=== PATIENT | male | born 1970 | race Caucasian/White ===

== ENCOUNTER 2023-06-14 15:16 | Outpatient (CLI) | payer BC, SELFPAY ==
--- NOTE | 2023-06-14 14:21 | DI.RAD_ITS ---
Exam(s) XR SHOULDER RT COMPLETE 2+V EXAM: XR SHOULDER RT COMPLETE 2+V CLINICAL HISTORY: RIGHT SHOULDER PAIN. TECHNIQUE: 2D digital imaging was performed of the right shoulder. Two images were obtained. Axill jaron and Grashey views were obtained. COMPARISON: CR RIGHT SHOULDER COMPLETE from 07/01/2008 FINDINGS: BONES: No acute fracture is present. No bony destructive lesion is seen. JOINTS: No dislocation present. The glenohumeral joint is well maintained. Mild degenerative changes are seen at the acromioclavicular joint. SOFT TISSUE: The visualized lung vieyra are clear. IMPRESSION: Mild degenerative changes seen at the acromioclavicular joint. DATA REPOSITORY: RADIATION DOSE DELIVERED:
== END 2023-06-14 15:17 | disposition home or self-care (01) ==
LOC: DIORS 15:17
PROVIDERS: PCP Internal Medicine; Visit Provider Student in an Organized Health Care Education/Training Program
DX: M19.011 Primary osteoarthritis, right shoulder (principal)
CPT/HCPCS: 73030

== ENCOUNTER → 2023-06-22 01:02 | Outpatient (CLI) | payer BC, SELFPAY ==
--- NOTE | 2023-06-22 07:30 | DI.MRI_ITS ---
Exam(s) MR UPPER JOINT RT WO EXAM: MR UPPER JOINT RT WO CLINICAL HISTORY: R SHOULDER PAIN,TENDONITIS,IMPINGEMENT SYNDROME,TRAUMATIC TEAR RTC. TECHNIQUE: Multiplanar multisequence MRI was performed. COMPARISON: CR XR SHOULDER RT COMPLETE 2+V from 06/14/2023 FINDINGS: BONES: There is no fracture or contusion pattern. There is a 2.1 x 1.8 cm well-circumscribed mildly l obulated area of hyperintense T2 and hypointense T1 signal in the proximal metaphysis of the humerus. There is marrow edema seen in the distal clavicle without evidence of a fracture. This may represe nt a contusion. JOINTS: Mild degenerative changes are seen at the acromioclavicular joint. The glenohumeral joint is normal. TENDONS: Supraspinatus: Unremarkable. Infraspinatus: Unremarkable. Subscapularis: Unremarkable. Teres Minor: Unremarkable. Biceps and Mary D: Unremarkable. MUSCLES: Unremarkable. GLENOID LABRUM: Unremarkable on this noncontrast examination. SOFT TISSUES: Unremarkable. LIGAMENTS: Unremarkable. OTHER: Subacromial and subdeltoid bursae are unremarkable. IMPRESSION: 1. Mild edema seen in the distal clavicle without definite fracture. This may represent a contusion. 2. 2.1 x 1.8 cm mildly lobulated T2 hyperintense and T1 hypointense lesion in the proximal metaphysis of the humerus. This likely reflects a benign lesion such as an enchondroma. 3. No evidence of a rotator cuff tear. Labrum is grossly unremarkable on this noncontrast examefrain prescott DATA REPOSITORY:
== END ==
PROVIDERS: PCP Internal Medicine; Visit Provider Student in an Organized Health Care Education/Training Program
DX: M25.511 Pain in right shoulder (principal); M75.21 Bicipital tendinitis, right shoulder; M75.41 Impingement syndrome of right shoulder; M75.81 Other shoulder lesions, right shoulder; S46.011A Strain of muscle(s) and tendon(s) of the rotator cuff of right shoulder, initial encounter
CPT/HCPCS: 73221